=== PATIENT | male | born 1960 | race African-American/Black ===

== ENCOUNTER 2020-11-21 09:10 | Emergency (ER) | payer OTHER ==
[2020-11-21 09:26] VITALS: BMI 31.6
[2020-11-21 10:17] LABS: BASO % 0.9 % (0-2.0); EOS % 0.9 % (0-4.5); HEMATOCRIT 41.2 % (35.4-49); HEMOGLOBIN 13.9 GM/dL (11.7-16.9); LYMPH % 20.9 % (8-40); MCH 30.1 pg (25.7-33.7); MCHC 33.8 g/dl (32.0-35.9); MEAN PLT VOLUME 7.8 fl (7.5-11.1); MONO % 6.7 % (3.8-10.2); NEUT % 70.6 % (42.8-82.8); PLATELET COUNT 315 K/MM3 (134-434); RBC 4.63 M/mm3 (4.00-5.60); RDW 13.8 % (11.9-15.9); WHITE BLOOD COUNT 6.5 K/mm3 (4.0-10.0)
[2020-11-21 10:31] LABS: INR 1.09 (0.83-1.09); PROTHROMBIN TIME (PATIENT) 13.2 SEC (9.7-13.0)
[2020-11-21 10:37] LABS: CHLORIDE 111 mmol/L (98-107); POTASSIUM 5.6 mmol/L (3.5-5.1); SODIUM 142 mmol/L (136-145)
[2020-11-21 10:39] LABS: CALCIUM 8.8 mg/dL (8.5-10.1)
[2020-11-21 10:40] LABS: ALBUMIN 2.9 g/dl (3.4-5.0); ANION GAP 2 MMOL/L (8-16); BLOOD UREA NITROGEN 17.9 mg/dL (7-18); CO2 29 mmol/L (21-32); GLUCOSE,RANDOM 100 mg/dL (74-106); MAGNESIUM 2.3 mg/dL (1.8-2.4)
[2020-11-21 10:42] LABS: CREATININE 1.2 mg/dL (0.55-1.3); SGOT/AST 42 U/L (15-37); SGPT/ALT 29 U/L (13-61)
[2020-11-21 10:44] LABS: BILIRUBIN,TOTAL 0.6 mg/dL (0.2-1); TOT PROT 7.2 g/dl (6.4-8.2)
[2020-11-21 10:50] LABS: ALK PHOS 120 U/L (45-117)
[2020-11-21 11:29] LABS: URINE APPEARANCE CLEAR; URINE BILIRUBIN NEGATIVE (NEGATIVE); URINE COLOR YELLOW; URINE GLUCOSE (UA) NEGATIVE (NEGATIVE); URINE KETONE NEGATIVE (NEGATIVE); URINE LEUK ESTERASE NEGATIVE (NEGATIVE); URINE NITRITE NEGATIVE (NEGATIVE); URINE PROTEIN NEGATIVE (NEGATIVE); URINE UROBILINOGEN 0.2 mg/dL (0.2-1.0)
[2020-11-21] MEDS ORDERED: SODIUM ZIRCONIUM CYCLOSILICATE (LOKELMA) 5 GM PACKET PO ONE (11:33)
[2020-11-21 14:07] LABS: POTASSIUM 4.9 mmol/L (3.5-5.1)
[2020-11-21 14:51] VITALS: BP 134/87; PULSE 95
[2020-11-22] MEDS ORDERED: SODIUM ZIRCONIUM CYCLOSILICATE (LOKELMA) 5 GM PACKET PO ONE (11:35)
== END 2020-11-21 14:51 | disposition home or self-care (01) ==
LOC: JER 09:10
DX: R55 Syncope and collapse (principal)
CPT/HCPCS: 36415; 70450-TC; 71045-TC-FY; 80053; 81003; 82550; 82553; 83735; 84132; 84443; 84484; 85025; 85610; 87086; 93005; 93010; 99285-25